=== PATIENT | male | born 1955 | race Caucasian/White ===

== ENCOUNTER 2018-08-02 06:10 | Inpatient (IN) ==
[2018-08-02] MEDS ORDERED: SODIUM CHLORIDE 0.9% 1,000 ML IV STA (06:46)
[2018-08-02 07:51] LABS: Barbiturates Screen,Urine Negative (Negative); Benzodiazepines Screen,Urine Positive (Negative); Cannabinoid Screen,Urine Negative (Negative); Opiate Screen,Urine Negative (Negative); Phencyclidine Screen,Urine Negative (Negative)
[2018-08-02 08:12] LABS: Basophils % 0.2 % (0.0-0.8); Eosinophils % 0.1 % (0.00-10.9); Hematocrit 44.2 VOL% (42.0-52.0); Hemoglobin 15.3 GM/DL (14.0-18.0); Immature Granulocytes % 0.5 %; Immature Granulocytes Absolute 0.04 #; Lymphocytes # 1.9 10*3/uL (1.4-4.0); Lymphocytes % 21.6 % (21.2-54.2); Mean Corpuscular HGB Conc 34.6 GM/DL (32-36); Mean Corpuscular Volume 85.7 FL (87-102); Mean Platelet Volume 11.1 FL (9.6-12.0); Monocytes % 8.6 % (1.7-12.7); Platelet Count 122 T/CUMM (130-400); Red Blood Count 5.16 MC/CUMM (3.8-5.5); Red Cell Distribution Width 13.3 % (9.3-17.3); White Blood Count 8.8 T/CUMM (4-12)
[2018-08-02 08:31] LABS: Alanine Aminotransferase 74 U/L (16-61); Albumin 4.1 G/DL (3.4-5.0); Alkaline Phosphatase 55 U/L (45-117); Aspartate Amino Transferase 63 U/L (0-37); Blood Urea Nitrogen 15 MG/DL (7-18); Calcium 9.2 MG/DL (8.5-10.1); Glucose 105 MG/DL (74-106); Osmolality,Calculated 281.3 MOS/KG (273-304); Total Protein 7.6 G/DL (6.4-8.3)
[2018-08-02] MEDS ORDERED: THIAMINE INJ 100 MG, FOLIC ACID INJ 1 MG, MULTIVITAMIN INJ 10 ML in SODIUM CHLORIDE 0.9... IV ONE (10:28)
[2018-08-02] MEDS ORDERED: hydrOXYzine HCL 25 MG/1 ML VIAL IM PRN (10:28)
[2018-08-02] MEDS ORDERED: DICYCLOMINE 10 MG CAPSULE PO PRN (10:28)
[2018-08-02] MEDS ORDERED: SENNA 8.6 MG TABLET PO PRN (10:29)
[2018-08-02] MEDS ORDERED: NICOTINE 21 MG/24 HR PATCH TRANSDERM PRN (10:29)
[2018-08-02] MEDS ORDERED: LOPERAMIDE 2 MG CAPSULE PO PRN (10:29)
[2018-08-02] MEDS ORDERED: ONDANSETRON 4 MG/2 ML VIAL IV PRN (10:29)
[2018-08-02] MEDS ORDERED: ALUMINUM/MAGNES/SIMETH MAX STR 30 ML UDCUP PO PRN (10:29)
[2018-08-02] MEDS ORDERED: LORazepam 2 MG/1 ML VIAL IV PRN (10:29)
[2018-08-02] MEDS: cloNIDine 0.1 MG TABLET PO PRN (10:55)
[2018-08-02] MEDS: chlordiazePOXIDE 25 MG CAPSULE PO SCH ×3 (10:55→23:25)
[2018-08-02] MEDS ORDERED: MAGNESIUM SULF RIDER 4 GM in PREMIX 1 EACH IV PRN (12:24)
[2018-08-02] MEDS ORDERED: MAGNESIUM SULF RIDER 2 GM in PREMIX 1 EACH IV PRN (12:24)
[2018-08-02] MEDS ORDERED: ALBUTEROL 2.5 MG/3 ML NEB RESP TX PRN (12:36)
[2018-08-02] MEDS: TAMSULOSIN 0.4 MG CAPSULE PO SCH (17:40)
[2018-08-02] MEDS: ACETAMINOPHEN 500 MG TABLET PO PRN (17:45)
[2018-08-02] MEDS: LORazepam 2 MG/1 ML VIAL IV PRN (20:36)
[2018-08-02] MEDS: LACTATED RINGERS 1,000 ML IV SCH (21:01)
[2018-08-03] MEDS: chlordiazePOXIDE 25 MG CAPSULE PO SCH ×3 (04:24→20:22)
[2018-08-03] MEDS: LORazepam 2 MG/1 ML VIAL IV PRN ×4 (04:30→22:12)
[2018-08-03 05:29] LABS: Basophils % 0.4 % (0.0-0.8); Eosinophils # 0.1 10*3/uL (0.0-0.87); Eosinophils % 1.1 % (0.00-10.9); Hematocrit 38.2 VOL% (42.0-52.0); Hemoglobin 13.3 GM/DL (14.0-18.0); Immature Granulocytes % 0.2 %; Immature Granulocytes Absolute 0.01 #; Lymphocytes # 1.7 10*3/uL (1.4-4.0); Lymphocytes % 30.8 % (21.2-54.2); Mean Corpuscular HGB Conc 34.8 GM/DL (32-36); Mean Corpuscular Volume 85.8 FL (87-102); Mean Platelet Volume 11.9 FL (9.6-12.0); Monocytes % 9.8 % (1.7-12.7); Neutrophils % 57.7 % (38.7-73.9); Platelet Count 98 T/CUMM (130-400); Red Blood Count 4.45 MC/CUMM (3.8-5.5); Red Cell Distribution Width 13.4 % (9.3-17.3); White Blood Count 5.5 T/CUMM (4-12)
[2018-08-03 05:48] LABS: Albumin 3.3 G/DL (3.4-5.0); Bilirubin,Total 1.5 MG/DL (0.2-1.0); Calcium 8.7 MG/DL (8.5-10.1); Osmolality,Calculated 285.8 MOS/KG (273-304); Total Protein 6.3 G/DL (6.4-8.3)
[2018-08-03 05:58] LABS: Eosinophils 1 % (0-10); Lymphocytes 33 % (20-55); Segmented Neutrophils 60 % (50-85); Total Cells Counted 100
[2018-08-03 05:59] LABS: Hypochromasia Slight; Ovalocytes Slight; Platelet Estimate Decreased
[2018-08-03] MEDS: THIAMINE 100 MG TABLET PO SCH (10:31)
[2018-08-03] MEDS: POTASSIUM CHLORIDE 20 MEQ TABLET PO PRN (10:31)
[2018-08-03] MEDS: MULTIVITAMIN (CENTRUM) TABLET PO SCH (10:31)
[2018-08-03] MEDS: TAMSULOSIN 0.4 MG CAPSULE PO SCH (10:31)
[2018-08-03] MEDS: FOLIC ACID 1 MG TABLET PO SCH (10:31)
[2018-08-03] MEDS: LACTATED RINGERS 1,000 ML IV SCH ×2 (16:04→20:20)
[2018-08-03 16:27] LABS: Hepatitis B Core IgM Quant < 0.05 Index; Hepatitis B Surface Ag Quant < 0.10 Index; Hepatitis B Surface Ag Result Negative (Negative); Hepatitis C Virus Ab Quant > 11.00 Index; Hepatitis C Virus Ab Result Positive (Negative)
[2018-08-03] MEDS: METHOCARBAMOL 750 MG TABLET PO PRN (20:35)
[2018-08-03] MEDS: ACETAMINOPHEN 500 MG TABLET PO PRN (21:24)
[2018-08-04] MEDS: chlordiazePOXIDE 25 MG CAPSULE PO SCH ×3 (02:15→17:37)
[2018-08-04] MEDS: LORazepam 2 MG/1 ML VIAL IV PRN ×3 (02:36→17:03)
[2018-08-04] MEDS: LACTATED RINGERS 1,000 ML IV SCH (11:08)
[2018-08-04] MEDS: TAMSULOSIN 0.4 MG CAPSULE PO SCH (11:08)
[2018-08-04] MEDS: FOLIC ACID 1 MG TABLET PO SCH (11:08)
[2018-08-04] MEDS: THIAMINE 100 MG TABLET PO SCH (11:08)
[2018-08-04] MEDS: MULTIVITAMIN (CENTRUM) TABLET PO SCH (11:08)
[2018-08-04] MEDS: ACETAMINOPHEN 500 MG TABLET PO PRN (17:02)
[2018-08-04] MEDS: BUPRENORPHINE SL TAB 2 MG TABLET SL SCH (17:05)
[2018-08-05] MEDS: BUPRENORPHINE SL TAB 2 MG TABLET SL SCH ×3 (00:26→16:26)
[2018-08-05] MEDS: LORazepam 2 MG/1 ML VIAL IV PRN ×4 (00:27→20:21)
[2018-08-05] MEDS: LACTATED RINGERS 1,000 ML IV SCH ×2 (00:29→13:22)
[2018-08-05 02:51] LABS: Basophils % 0.2 % (0.0-0.8); Eosinophils # 0.1 10*3/uL (0.0-0.87); Eosinophils % 2.4 % (0.00-10.9); Hematocrit 37.9 VOL% (42.0-52.0); Immature Granulocytes % 0.2 %; Immature Granulocytes Absolute 0.01 #; Lymphocytes % 34.5 % (21.2-54.2); Mean Corpuscular HGB Conc 34.3 GM/DL (32-36); Mean Corpuscular Volume 86.7 FL (87-102); Mean Platelet Volume 10.7 FL (9.6-12.0); Monocytes % 7.4 % (1.7-12.7); Neutrophils % 55.3 % (38.7-73.9); Platelet Count 108 T/CUMM (130-400); Red Blood Count 4.37 MC/CUMM (3.8-5.5); Red Cell Distribution Width 13.6 % (9.3-17.3); White Blood Count 5.9 T/CUMM (4-12)
[2018-08-05] MEDS: chlordiazePOXIDE 25 MG CAPSULE PO SCH (03:02)
[2018-08-05 03:22] LABS: Albumin 3.3 G/DL (3.4-5.0); Bilirubin,Total 0.6 MG/DL (0.2-1.0); Calcium 8.5 MG/DL (8.5-10.1); Osmolality,Calculated 286.7 MOS/KG (273-304); Total Protein 6.1 G/DL (6.4-8.3)
[2018-08-05] MEDS: POTASSIUM CHLORIDE 20 MEQ TABLET PO PRN ×2 (04:31→09:23)
[2018-08-05] MEDS: MULTIVITAMIN (CENTRUM) TABLET PO SCH (09:22)
[2018-08-05] MEDS: FOLIC ACID 1 MG TABLET PO SCH (09:23)
[2018-08-05] MEDS: THIAMINE 100 MG TABLET PO SCH (09:23)
[2018-08-05] MEDS: TAMSULOSIN 0.4 MG CAPSULE PO SCH (09:23)
[2018-08-05] MEDS: ACETAMINOPHEN 500 MG TABLET PO PRN (13:21)
[2018-08-05] MEDS: POTASSIUM CHLORIDE 20 MEQ TABLET PO SCH (16:26)
[2018-08-05] MEDS: METHOCARBAMOL 750 MG TABLET PO PRN (20:21)
[2018-08-06] MEDS: BUPRENORPHINE SL TAB 2 MG TABLET SL SCH ×3 (00:18→17:25)
[2018-08-06] MEDS: LACTATED RINGERS 1,000 ML IV SCH ×2 (02:50→17:25)
[2018-08-06] MEDS: TAMSULOSIN 0.4 MG CAPSULE PO SCH (08:58)
[2018-08-06] MEDS: MULTIVITAMIN (CENTRUM) TABLET PO SCH (08:58)
[2018-08-06] MEDS: FOLIC ACID 1 MG TABLET PO SCH (08:58)
[2018-08-06] MEDS: THIAMINE 100 MG TABLET PO SCH (08:58)
[2018-08-06] MEDS: POTASSIUM CHLORIDE 20 MEQ TABLET PO SCH (08:58)
[2018-08-06] MEDS: LORazepam 2 MG/1 ML VIAL IV PRN (09:10)
[2018-08-06] MEDS ORDERED: LORazepam 0.5 MG TABLET PO PRN (09:26)
[2018-08-06] MEDS ORDERED: HydrOXYzine PAMOATE 50 MG CAPSULE PO PRN (09:27)
[2018-08-06] MEDS: ACETAMINOPHEN 500 MG TABLET PO PRN ×2 (11:43→20:21)
[2018-08-06 12:36] LABS: Albumin 2.9 G/DL (3.4-5.0); Bilirubin,Total 0.4 MG/DL (0.2-1.0); Calcium 8.4 MG/DL (8.5-10.1); Total Protein 5.7 G/DL (6.4-8.3)
[2018-08-06] MEDS ORDERED: hydrALAZINE 20 MG/1 ML VIAL IV PRN (14:06)
[2018-08-06] MEDS: cloNIDine 0.1 MG TABLET PO PRN (20:21)
[2018-08-07] MEDS: BUPRENORPHINE SL TAB 2 MG TABLET SL SCH (06:50)
[2018-08-07] MEDS: LACTATED RINGERS 1,000 ML IV SCH (06:55)
[2018-08-07] MEDS: THIAMINE 100 MG TABLET PO SCH (09:11)
[2018-08-07] MEDS: TAMSULOSIN 0.4 MG CAPSULE PO SCH (09:11)
[2018-08-07] MEDS: FOLIC ACID 1 MG TABLET PO SCH (09:11)
[2018-08-07] MEDS: MULTIVITAMIN (CENTRUM) TABLET PO SCH (09:11)
[2018-08-07] MEDS: POTASSIUM CHLORIDE 20 MEQ TABLET PO SCH (09:11)
[2018-08-07 13:38] VITALS: BP 153/97
== END 2018-08-07 12:57 | disposition home or self-care (01) | DRG 897 ==
LOC: EDBD → EDUNIT# → N.ED 06:10 → N.4E 10:30 → SUATTDRO 10:30
PROVIDERS: ADMIT Internal Medicine; ATTEND Internal Medicine